=== PATIENT | female | born 1970 | race Caucasian/White ===

== ENCOUNTER 2016-09-25 10:37 | Inpatient (IN) ==
--- NOTE | 2016-09-25 11:32 | Emergency Department Note ---
Disposition Clinical Impression: Suicidal ideation Disposition: Admitted As Inpatient Psych HPI - General Chief Complaint: ED Psychiatric Symptoms Stated Complaint: SI Time Seen by Provider: 09/25/16 11:07 Source: patient Nursing Notes Reviewed: Yes Vital Signs Reviewed: Yes - History of Present Illness HPI Narrative: Patient presents complaining of suicidal ideation. Patient states she has been a lot of stress recently and feels that she does not want to live anymore. Patient denies a recent attempt but she does note that 5 years ago she took a handful of Xanax because she did not want to live anymore. Patient denies chest pain denies homicidal ideation. Per nurse report patient reported she drove around for 2-3 hours deciding what to do for presented to the emergency department. - Related Data Allergies Allergy/AdvReac Type Severity Reaction Status Date / Time clindamycin Allergy Rash Verified 09/25/16 10:53 codeine Allergy Itching Verified 09/25/16 10:53 Sulfa (Sulfonamide Allergy Rash Verified 09/25/16 10:53 Antibiotics) Torsemide Allergy Hives Verified 09/25/16 13:22 All systems ED: reviewed and negative except as stated. Past Medical History - Past Medical History Source: patient Medical history: Reports: no medical history Psychiatric history: Reports: anxiety, depression - Social History Smoking Status: Never smoker Smokeless Tobacco Status: No Alcohol use: Reports: none Drug use: Reports: none Physical Exam - General Limitations: no limitations General appearance: alert, in no apparent distress - Head Head exam: atraumatic, normocephalic, normal inspection - Eye Eye exam: Present: normal appearance, PERRL, EOMI - ENT ENT exam: normal exam, normal oropharynx, mucous membranes moist - Neck Neck exam: Present: normal inspection, full ROM, trachea midline - Chest Chest inspection: Present: normal inspection, symmetric chest wall rise - Respiratory Respiratory exam: Present: normal lung sounds bilaterally - Cardiovascular Cardiovascular exam: Present: regular rate, normal rhythm, normal heart sounds - Abdominal Exam Abdominal exam: Present: soft, Non-Tender. Absent: tenderness, distention, guarding, rebound, rigidity - Extremities Exam Extremities exam: Present: normal inspection, full ROM. Absent: tenderness, pedal edema - Back Exam Back exam: Present: normal inspection, full ROM. Absent: tenderness - Neurological Exam Neurological exam: Present: alert, oriented X3 - Psychiatric Psychiatric exam: Present: normal mood, suicidal ideation - Skin Skin exam: Present: warm, dry, intact, normal color Course Vital Signs Temperature 98.1 F 09/25/16 10:46 Pulse Rate 84 09/25/16 10:46 Respiratory Rate 16 09/25/16 10:46 Blood Pressure 142/76 09/25/16 10:46 O2 Sat by Pulse Oximetry 99 09/25/16 10:46 Temperature 98.1 F 09/25/16 10:46 Pulse Rate 84 09/25/16 10:46 Respiratory Rate 16 09/25/16 13:15 Blood Pressure 117/75 09/25/16 13:15 O2 Sat by Pulse Oximetry 99 09/25/16 10:46 Oxygen Delivery Oxygen Delivery Room Air Psych - Differential Diagnosis Likely: acute psychosis, suicidal ideation, bipolar disorder, depression, acute anxiety state - Lab Data Lab Results 09/25/16 09/25/16 09/25/16 Range/Units 10:50 10:50 10:50 Urine Color Yellow (Yellow) Urine Clarity Cloudy A (Clear) Urine pH 6.5 (5.0-8.0) pH Units Ur Specific Ball 1.030 H (1.010-1.025) Urine Protein Trace (Neg-Trace) mg/dL Urine Glucose (UA) Normal (Normal) mg/dL Urine Ketones Negative (Negative) mg/dL Urine Blood Negative (Negative) Urine Nitrite Negative (Negative) Urine Bilirubin Negative (Negative) Urine Urobilinogen Normal (Normal) mg/dL Ur Leukocyte Esterase Negative (Negative) Urine Microscopic RBC 0-3 (0-3) per hpf Urine Microscopic WBC 0-3 (0-3) per hpf Ur Squamous Epith Cells Many H (None-Few) per lpf Amorphous Sediment Moderate H (Few) Urine Bacteria None Seen (None-Few) per hpf Hyaline Casts None Seen (None-Few) per lpf Urine Mucus Many H (Few) Ur Culture Indicated? NO (NO) Urine Test Negative (Negative) Salicylates (15-30) mg/dL Urine Opiates Screen Negative (Eerisj=457) ng/mL Acetaminophen (10-30) mcg/mL Ur Barbiturates Screen Negative (Dmscdv=324) ng/mL Ur Phencyclidine Scrn Negative (Cutoff=25) ng/mL Ur Amphetamines Screen Negative (Nrsxsm=8851) ng/mL U Benzodiazepines Scrn Negative (Qeefkq=043) ng/mL Urine Cocaine Screen Negative (Cutoff= 300) ng/mL U Marijuana (THC) Screen Negative (Cutoff = 50) ng/mL Ethyl Alcohol (0-10) mg/dL 09/25/16 Range/Units 11:56 Urine Color (Yellow) Urine Clarity (Clear) Urine pH (5.0-8.0) pH Units Ur Specific Ball (1.010-1.025) Urine Protein (Neg-Trace) mg/dL Urine Glucose (UA) (Normal) mg/dL Urine Ketones (Negative) mg/dL Urine Blood (Negative) Urine Nitrite (Negative) Urine Bilirubin (Negative) Urine Urobilinogen (Normal) mg/dL Ur Leukocyte Esterase (Negative) Urine Microscopic RBC (0-3) per hpf Urine Microscopic WBC (0-3) per hpf Ur Squamous Epith Cells (None-Few) per lpf Amorphous Sediment (Few) Urine Bacteria (None-Few) per hpf Hyaline Casts (None-Few) per lpf Urine Mucus (Few) Ur Culture Indicated? (NO) Urine Test (Negative) Salicylates < 5.0 L (15-30) mg/dL Urine Opiates Screen (Owsqef=910) ng/mL Acetaminophen < 1.0 L (10-30) mcg/mL Ur Barbiturates Screen (Xnbodh=349) ng/mL Ur Phencyclidine Scrn (Cutoff=25) ng/mL Ur Amphetamines Screen (Ljazdu=2671) ng/mL U Benzodiazepines Scrn (Njugdk=155) ng/mL Urine Cocaine Screen (Cutoff= 300) ng/mL U Marijuana (THC) Screen (Cutoff = 50) ng/mL Ethyl Alcohol < 10 (0-10) mg/dL Psychiatric Medical Clearance - Medical Clearance Checklist Medical History: No Social History Section defined Current Vitals: Last Vital Signs Temp 98.1 F 09/25/16 10:46 Pulse 84 09/25/16 10:46 Resp 16 09/25/16 13:15 BP 117/75 09/25/16 13:15 Pulse Ox 99 09/25/16 10:46 Psychiatric Lab Panel: Drug Levels and Toxicity 09/25/16 09/25/16 10:50 11:56 Urine Opiates Screen Negative Acetaminophen < 1.0 L Ur Barbiturates Screen Negative Ur Phencyclidine Scrn Negative Ur Amphetamines Screen Negative U Benzodiazepines Scrn Negative Urine Cocaine Screen Negative U Marijuana (THC) Screen Negative Ethyl Alcohol < 10 Abnormal Labs: Abnormal lab results Urine Clarity Cloudy (Clear) A 09/25/16 10:50 Ur Specific Ball 1.030 (1.010-1.025) H 09/25/16 10:50 Ur Squamous Epith Cells Many per lpf (None-Few) H 09/25/16 10:50 Amorphous Sediment Moderate (Few) H 09/25/16 10:50 Urine Mucus Many (Few) H 09/25/16 10:50 Salicylates < 5.0 mg/dL (15-30) L 09/25/16 11:56 Acetaminophen < 1.0 mcg/mL (10-30) L 09/25/16 11:56 Statement of Medical Clearance: I have evaluated the patient, reviewed diagnostic information, and certify that the patient's medical condition is sufficiently stable that transfer to the psychiatric unit does not pose a significant risk of deterioration.
[2016-09-25 11:59] LABS: Bilirubin,Urine Negative (Negative); Blood,Urine Negative (Negative); Clarity,Urine Cloudy (Clear); Color,Urine Yellow (Yellow); Glucose,Urine (UA) Normal (Normal); Ketones,Urine Negative (Negative); Leukocyte Esterase,Urine Negative (Negative); Nitrite,Urine Negative (Negative); PH,Urine 6.5 pH Units (5.0-8.0); Protein,Urine Trace mg/dL (Neg-Trace); Urobilinogen,Urine Normal (Normal)
[2016-09-25 12:01] LABS: Bacteria,Urine None Seen per hpf (None-Few); Hyaline Casts,Urine None Seen per lpf (None-Few); RBC,Urine 0-3 per hpf (0-3); Squamous Epithelial Cell,Urine Many per lpf (None-Few); WBC,Urine 0-3 per hpf (0-3)
[2016-09-25 12:04] LABS: Amphetamine Screen,Urine Negative ng/mL (Cutoff=1000); Barbiturate Screen,Urine Negative ng/mL (Cutoff=200); Benzodiazepines Screen,Urine Negative ng/mL (Cutoff=200); Cannabinoid Screen,Urine Negative ng/mL (Cutoff = 50); Cocaine Screen,Urine Negative ng/mL (Cutoff= 300); Opiate Screen,Urine Negative ng/mL (Cutoff=300); Phencyclidine Screen,Urine Negative ng/mL (Cutoff=25)
[2016-09-25 12:18] LABS: Acetaminophen < 1.0 mcg/mL (10-30); Ethanol < 10 mg/dL (0-10); Salicylate < 5.0 mg/dL (15-30)
[2016-09-25 12:19] LABS: Amorphous Sediment,Urine Moderate (Few); Mucus,Urine Many (Few)
[2016-09-25] MEDS ORDERED: Mag Hydrox/Al Hydrox/Simeth 30 ML UDC PO PRN (14:51)
[2016-09-25] MEDS ORDERED: MOM Conc 10 ML UD.LIQ PO PRN (14:51)
[2016-09-25] MEDS ORDERED: Haloperidol Lactate 5 MG/ML VIAL IM PRN (14:51)
[2016-09-25] MEDS ORDERED: *HR* LORazepam 2 MG/ML VIAL IM PRN (14:51)
[2016-09-25] MEDS ORDERED: *HR* LORazepam 1 MG TABLET PO PRN (14:51)
[2016-09-25] MEDS ORDERED: traZODone 50 MG TABLET PO PRN (14:51)
[2016-09-25] MEDS ORDERED: hydroCHLOROthiazide 25 MG TABLET PO PRN (14:53)
[2016-09-25] MEDS: ALPRAZolam 0.5 MG TABLET PO PRN (21:12)
[2016-09-26] MEDS: Acetaminophen 325 MG TABLET PO PRN (06:45)
[2016-09-26] MEDS: BuPROPion XL (24 HR) 150 MG TABLET PO SCH (08:37)
[2016-09-26] MEDS: Loratadine 10 MG TABLET PO SCH (08:37)
--- NOTE | 2016-09-26 16:11 | Psychiatry History & Physical ---
Date of Encounter: 09/29/16 Time of Encounter: 11:00 History of Present Illness Patient Stated Chief Complaint: I wish i can disappear from life Medicare Admission Attestation: For traditional Medicare patients the provided hospital inpatient services are reasonable and necessary and in the case of services not specified as inpatient -only under 42 CFR 419.22 (n), that they are appropriately provided as inpatient services in accordance 42 CFR 412.3. For Critical [facility] the patient may reasonably be expected to be discharged or transferred to a hospital within 96 hours after admission to the Critical [facility]. Admitted From: Emergency Dept History of Present Illness: Ms. Zhang is a 46 year old female admitted from the emergency room for depression and suicidal ideation patient works as a medical typist and she had a history of overdose 5 years ago on Xanax. On admission the patient was placed on Wellbutrin SR 150 mg and she was continued on home medication for trintellix 20 mg in addition to trazodone for sleep. Patient was cooperative and attending groups and participating in unit activities and responding to medication positively. Past Med Surg Social Fam HX - Past Medical History Medical history: no medical history, non-contributory - Past Psychiatric History Psychiatric history: Reports: depression, prior suicide attempt Past psychiatric history details: Patient states she overdosed on Xanax 5 years ago but did not seek any medical attention at that time. Family psychiatric history: Unknown Family History of Suicide: Unknown - Past Surgical History Surgical History: non-contributory - Social History Smoking Status: Never smoker Smokeless Tobacco Status: No Alcohol use: none Drug use: none Medications & Allergies Alprazolam [Xanax 0.5 MG Tablet] 0.5 mg PO TID PRN 09/25/16 [History] Cetirizine HCl [Zyrtec] 10 mg PO DAILY 09/25/16 [History] Hydrochlorothiazide 25 mg PO DAILY PRN 09/25/16 [History] Tramadol HCl [Ultram] 50 - 100 mg PO TID PRN 09/25/16 [History] Vortioxetine Hydrobromide [Trintellix] 20 mg PO DAILY 09/26/16 [History] BuPROPion XL (24 HR) [Wellbutrin Xl] 150 mg PO DAILY #30 tab.er.24h 09/27/16 [Rx ] TraZODone 100 mg PO HS PRN #30 tablet 09/27/16 [Rx] Allergies clindamycin Allergy (Verified 09/25/16 13:29) Rash codeine Allergy (Verified 09/25/16 13:29) Itching Sulfa (Sulfonamide Antibiotics) Allergy (Verified 09/25/16 13:29) Rash Torsemide Allergy (Verified 09/25/16 13:29) Hives Review of Systems Psychiatric: Reports: depression, anxiety, abnormal sleep pattern, suicidal ideation, hopelessness, irritability Mental Status Exam Patient orientation: Yes Person, Yes Time, Yes Place Level of alertness: Alert Patient appearance: Appropriate, Well Groomed Behavior: nervous, anxious, talkative Psychomotor activity: Increased Eye contact: Maintains Eye Contact Mood description: Anxious, Labile, Irritable Affect description: congruent with mood, constricted Speech pattern: Normal rate, Normal rhythm Speech volume: Normal Thought process: Logical, Linear Thought content: Yes Suicidal ideation, Yes Obsessive thoughts Perceptual disturbances: No Auditory hallucinations, No Visual hallucinations Attention span: Capable of Focused Attention Memory description: Grossly Intact Patient reliability: Reliable Historian Intelligence estimate: Average Judgment: Limited Insight: Partial Results - Vital Signs Vital signs: Temp Pulse Resp BP Pulse Ox 98 F 63 16 102/71 99 09/26/16 08:29 09/26/16 08:29 09/26/16 08:29 09/26/16 08:29 09/25/16 10:46 - Labs Labs: Laboratory Last Values Urine Color Yellow (Yellow) 09/25/16 10:50 Urine Clarity Cloudy (Clear) A 09/25/16 10:50 Urine pH 6.5 pH Units (5.0-8.0) 09/25/16 10:50 Ur Specific Ambler 1.030 (1.010-1.025) H 09/25/16 10:50 Urine Protein Trace mg/dL (Neg-Trace) 09/25/16 10:50 Urine Glucose (UA) Normal mg/dL (Normal) 09/25/16 10:50 Urine Ketones Negative mg/dL (Negative) 09/25/16 10:50 Urine Blood Negative (Negative) 09/25/16 10:50 Urine Nitrite Negative (Negative) 09/25/16 10:50 Urine Bilirubin Negative (Negative) 09/25/16 10:50 Urine Urobilinogen Normal mg/dL (Normal) 09/25/16 10:50 Ur Leukocyte Esterase Negative (Negative) 09/25/16 10:50 Urine Microscopic RBC 0-3 per hpf (0-3) 09/25/16 10:50 Urine Microscopic WBC 0-3 per hpf (0-3) 09/25/16 10:50 Ur Squamous Epith Cells Many per lpf (None-Few) H 09/25/16 10:50 Amorphous Sediment Moderate (Few) H 09/25/16 10:50 Urine Bacteria None Seen per hpf (None-Few) 09/25/16 10:50 Hyaline Casts None Seen per lpf (None-Few) 09/25/16 10:50 Urine Mucus Many (Few) H 09/25/16 10:50 Ur Culture Indicated? NO (NO) 09/25/16 10:50 Urine Test Negative (Negative) 09/25/16 10:50 Salicylates < 5.0 mg/dL (15-30) L 09/25/16 11:56 Urine Opiates Screen Negative ng/mL (Nieyax=299) 09/25/16 10:50 Acetaminophen < 1.0 mcg/mL (10-30) L 09/25/16 11:56 Ur Barbiturates Screen Negative ng/mL (Jotleg=045) 09/25/16 10:50 Ur Phencyclidine Scrn Negative ng/mL (Cutoff=25) 09/25/16 10:50 Ur Amphetamines Screen Negative ng/mL (Ylkmip=4203) 09/25/16 10:50 U Benzodiazepines Scrn Negative ng/mL (Nilkjo=258) 09/25/16 10:50 Urine Cocaine Screen Negative ng/mL (Cutoff= 300) 09/25/16 10:50 U Marijuana (THC) Screen Negative ng/mL (Cutoff = 50) 09/25/16 10:50 Ethyl Alcohol < 10 mg/dL (0-10) 09/25/16 11:56 Assessment and Plan (1) Suicidal ideation Status: Acute Plan: Admit inpatient for safety and stabilization, Close observation, Suicide Precautions per unit protocol, Encourage participation in unit milieu, Group Therapy, Monitor sleep, Monitor appetite Additional Plan: I discussed treatment plan was a patient including Wellbutrin SR 150 mg daily in addition to medication until asked Merary and she double LX 20 mg daily this medication has been started already was a patient for the past 2 months in addition she will reduce trazodone 50 mg at bedtime for sleep. Patient is agreeable to this plan . Risks, benefits, side effects, alternatives discussed w/pt: Yes Patient agreeable to treatment: Yes Estimated Length of Stay (Days): 5
[2016-09-26] MEDS ORDERED: TRINTELLIX 20MG PO SCH (22:45)
[2016-09-26] MEDS: ALPRAZolam 0.5 MG TABLET PO PRN (23:14)
[2016-09-27] MEDS: Acetaminophen 325 MG TABLET PO PRN (07:32)
[2016-09-27] MEDS: BuPROPion XL (24 HR) 150 MG TABLET PO SCH (08:28)
[2016-09-27] MEDS: Loratadine 10 MG TABLET PO SCH (08:28)
[2016-09-27 10:22] VITALS: BP 99/65
[2016-09-27] MEDS ORDERED: hydrOXYzine pamoate 25 MG CAPSULE PO PRN (10:43)
--- NOTE | 2016-09-27 14:18 | Discharge Summary ---
Date of Encounter: 09/29/16 Time of Encounter: 14:18 Diagnosis - Discharge Diagnosis (1) Suicidal ideation Priority: Primary Status: Acute Medications - Discharge Medications Prescriptions: BuPROPion XL (24 HR) [Wellbutrin Xl] 150 mg PO DAILY #30 tab.er.24h TraZODone 100 mg PO HS PRN #30 tablet PRN Reason: Insomnia Alprazolam [Xanax 0.5 MG Tablet] 0.5 mg PO TID PRN 09/25/16 [History] Cetirizine HCl [Zyrtec] 10 mg PO DAILY 09/25/16 [History] Hydrochlorothiazide 25 mg PO DAILY PRN 09/25/16 [History] Tramadol HCl [Ultram] 50 - 100 mg PO TID PRN 09/25/16 [History] Vortioxetine Hydrobromide [Trintellix] 20 mg PO DAILY 09/26/16 [History] BuPROPion XL (24 HR) [Wellbutrin Xl] 150 mg PO DAILY #30 tab.er.24h 09/27/16 [Rx ] TraZODone 100 mg PO HS PRN #30 tablet 09/27/16 [Rx] Allergies clindamycin Allergy (Verified 09/25/16 13:29) Rash codeine Allergy (Verified 09/25/16 13:29) Itching Sulfa (Sulfonamide Antibiotics) Allergy (Verified 09/25/16 13:29) Rash Torsemide Allergy (Verified 09/25/16 13:29) Hives Provider Date of admission: 09/25/16 13:12 Primary care physician: Jomar Mandujano Discharging clinician: Kenneth Waldron Assessment and Plan - Patient/Caregiver Discharge Instructions Activity: resume usual activities as tolerated Diet: regular diet - Follow up Plan Follow up with: [facility] [Outside] - 11/08/16 10:00 am (The above appointment is with Dr. Carvalho, psychiatrist. Please arrive 15 minutes early for paperwork. You will receive a call directly to set up your counseling appointment in this same office.) Disposition: Home, Self-Care Hospital Course Hospital course: Ms. Zhang is a 46 year old female admitted for depression and suicidal ideation. Please see history of present illness. On admission patient medication were reviewed and she was treated was Wellbutrin SR Haldol 50 mg daily and trazodone 50 mg bedtime in addition to medication from home trintellix 20 mg daily she responded well to treatment she reported improved sleep more was nondepressed person to discharge she denied any suicidal ideation she was medically stable and motivated to follow up as outpatient. - Time Spent with Patient Total time spent providing and/or coordinating discharge services: Greater than 30 minutes Quality - Multiple Antipsychotics Patient discharged on 2 or more antipsychotic medications: No Procedures - Procedures Procedures: Medication Management, Crisis Stabilization, Supportive Therapy, Group Therapy, Psychoeducational Therapy Mental Status Exam - Mental Status Exam Patient orientation: Yes Person, Yes Time, Yes Place Level of alertness: Alert Patient appearance: Appropriate, Well Groomed Behavior: nervous, anxious, talkative Psychomotor activity: Increased Eye contact: Maintains Eye Contact Mood description: Anxious, Labile, Irritable Affect description: congruent with mood, constricted Speech pattern: Normal rate, Normal rhythm Speech Volume: Normal Thought process: Logical, Linear Thought Content: No Suicidal ideation, Yes Obsessive thoughts Perceptual Disturbances: No Auditory hallucinations, No Visual hallucinations Judgment: Good Insight: Full
[2016-09-28] MEDS ORDERED: BuPROPion XL (24 HR) 150 MG TABLET PO SCH (09:00)
== END 2016-09-27 16:00 | disposition home or self-care (01) | DRG 885 ==
LOC: EMEROO 10:37 → 1ANU 13:12
PROVIDERS: ADMIT Psychiatry & Neurology Psychiatry; ATTEND Psychiatry & Neurology Psychiatry